=== PATIENT | female | born 1975 ===

== ENCOUNTER 2018-05-14 13:17 | Emergency (ER) | payer MEDICAID, OTHER ==
[2018-05-14 13:35] VITALS: BP 148/76; PULSE 70; RESP 16; TEMP 98.9; O2SAT 99; BMI 37.8
[2018-05-14] MEDS ORDERED: Lidocaine 5% Patch TD STA (13:42)
--- NOTE | 2018-05-14 13:45 | C.PDOC ---
History Of Present Illness 42 year old female presents to the ED c/o persistent mid back pain for the past 4 days, onset while patient was bent over cleaning. Patient reports no improvement with Motrin 800 and has not taken any medications today. Patient also c/o residual bilateral neck pain. Patient denies history of back pain, weakness, numbness, saddle anesthesia, incontinence. Time Seen by Provider: 05/14/18 13:36 Chief Complaint (Nursing): Back Pain History Per: Patient History/Exam Limitations: no limitations Onset/Duration Of Symptoms: Days, Persistent Current Symptoms Are (Timing): Still Present Quality Of Discomfort: "Pain" Previous Symptoms: None Associated Symptoms: None Recent travel outside of the [place]: No Additional History Per: Patient Past Medical History Reviewed: Historical Data, Nursing Documentation, Vital Signs Vital Signs: Last Vital Signs Temp 98.9 F 05/14/18 13:33 Pulse 70 05/14/18 13:33 Resp 16 05/14/18 13:33 BP 148/76 05/14/18 13:33 Pulse Ox 99 05/14/18 13:45 - Medical History PMH: No Chronic Diseases Denies: Back Problems Surgical History: No Surg Hx Family History: States: Unknown Family Hx - Social History Hx Tobacco Use: No Hx Alcohol Use: No Hx Substance Use: No Review Of Systems Constitutional: Negative for: Fever, Chills Cardiovascular: Negative for: Chest Pain Respiratory: Negative for: Shortness of Breath Gastrointestinal: Negative for: Nausea, Vomiting, Abdominal Pain Musculoskeletal: Positive for: Neck Pain, Back Pain Skin: Negative for: Rash Neurological: Negative for: Weakness, Numbness, Headache Physical Exam - Physical Exam Appears: Non-toxic, No Acute Distress Skin: Normal Color, Warm, Dry Head: Atraumatic, Normacephalic Eye(s): bilateral: Normal Inspection Oral Mucosa: Moist Neck: Normal ROM, No Midline Cervical Tenderness, Paracervical Tenderness ( lateral neck), Supple Chest: Symmetrical Cardiovascular: Rhythm Regular Respiratory: Normal Breath Sounds, No Rales, No Rhonchi, No Wheezing Back: No Vertebral Tenderness, Paraspinal Tenderness (mid back, local spasm) Extremity: Normal ROM, No Tenderness, No Swelling Neurological/Psych: Oriented x3, Normal Speech, Normal Motor, Normal Sensation Gait: Steady ED Course And Treatment O2 Sat by Pulse Oximetry: 99 (On RA) Pulse Ox Interpretation: Normal Medical Decision Making Medical Decision Making: Impression: back sprain Plan: * Flexeril 10 mg PO * Lidoderm patch * Motrin 600 mg PO * Tylenol 650 mg PO Old records: Patient currently taking Methadone. Disposition Counseled Patient/Family Regarding: Diagnosis, Need For Followup, Rx Given - Disposition Referrals: [facility] [Outside] [facility] [Outside] Disposition: HOME/ ROUTINE Disposition Time: 13:44 Prescriptions: Cyclobenzaprine [Flexeril] 10 mg PO TID #15 tab Lidocaine 5% [Lidoderm] 1 ea TD PRN PRN #10 patch PRN Reason: Pain, Moderate (4-7) Instructions: Low Back Pain (DC) Forms: [employer] (Bahamian) - Clinical Impression Clinical Impression: Low back pain - Scribe Statement The provider has reviewed the documentation as recorded by the Scribe Edvin Avila All medical record entries made by the Scribe were at my direction and personally dictated by me. I have reviewed the chart and agree that the record accurately reflects my personal performance of the history, physical exam, medical decision making, and the department course for this patient. I have also personally directed, reviewed, and agree with the discharge instructions and disposition.
[2018-05-14] MEDS ORDERED: Lidocaine 5% Patch TD ONE (13:52)
== END 2018-05-14 14:14 | disposition home or self-care (01) ==
LOC: C.ER 13:17
DX: M54.5 Low back pain (principal)